=== PATIENT | female | born 1955 | race Caucasian/White ===

== ENCOUNTER 2017-08-07 09:56 | Day surgery (SDC) | payer BC ==
[~2017-08-07] VITALS: Ht 167.6 cm; Wt 113.4 kg
[~2017-08-07 09:56] MED LIST: ADVAIR HFA120 INHAL1 IH; CELEBREX200 MG PO; COZAAR50 MG PO; EPIPEN ADU0.3 MG/0.3 IM; HYDROCHLOROTHIA25 MG PO; PROVENTIL HFA6.7 GM IH; SINGULAIR10 MG PO; ZYRTEC10 M3 PO
[2017-08-07 10:26] VITALS: BP 149/76
[2017-08-07 19:51] VITALS: BP 140/67
[2017-08-07 21:54] VITALS: BP 140/67
[2017-08-08 00:47] VITALS: BP 116/52
[2017-08-08 05:22] VITALS: BP 120/65
[2017-08-08 07:51] VITALS: BP 112/53
[2017-08-08 11:01] VITALS: BP 136/65
== END 2017-08-08 12:54 | disposition home or self-care (01) ==
LOC: SDC 09:56 → 2SOUTH 17:30 → 3EAST 17:30 → ENRESERV 18:53 → 3EAST 19:40 → ENRESERV 19:47 → 3EAST 19:47
PROC: 0SGG04Z Fusion of Left Ankle Joint with Internal Fixation Device, Open Approach (ICD-10-PCS; principal; 2017-08-07)
DX: M19.172 Post-traumatic osteoarthritis, left ankle and foot (principal); Z88.5 Allergy status to narcotic agent; Z88.6 Allergy status to analgesic agent; Z91.041 Radiographic dye allergy status; Z88.2 Allergy status to sulfonamides; Z91.013 Allergy to seafood; Z91.048 Other nonmedicinal substance allergy status
CPT/HCPCS: 73600; 76000; 80053; 94640; 94640 76; 94799; 99202; C1713; G0378; J0690; J1100; J1885; J2250; J2405; J2795; J3010; Q0175; S0020